=== PATIENT | female | born 1955 | race Caucasian/White ===

== ENCOUNTER 2016-08-26 23:53 | Inpatient (IN) | payer MEDICARE, OTHER ==
--- NOTE | ~2016-08-26 | ECH ---
Echocardiogram [address] [place]. [address] NAME: JAI PERES : 59 STATUS : DIS IN PAT#: [id number] AGE: 61 ADM/REG DATE : 08/27/16 MR#: [id number] REPORT SERV DATE: 08/31/16 DICTATED BY: DANIA HILL JR. DATE: 08/27/16 REPORT STATUS : Draft TRANSCRIBED BY: SAJI DATE: 08/27/16 REFERRING DOCTOR: Dr. Gonzalez, Dr. Miles, Dr. Addison. DATE OF ACQUISITION: 08/27/2016. INDICATIONS: Syncope. ROOM NUMBER: [facility] 226. TECH: Robyn Cruz is the RDCS. 2-D INTERPRETATION: M-mode and 2-dimensional echocardiography were performed. The left atrium was normal in size measuring 2.1 cm compared to an aortic root diameter of 3 cm. The left ventricle was normal in size measuring 3.9 cm in end-diastole and 2.6 cm in end- systole. Overall, there appeared to be normal left ventricular systolic function without obvious segmental wall motion abnormality with ejection fraction approximately 60%. The aortic valve was trileaflet. The mitral valve appeared to be structurally normal. The remaining cardiac valves appeared to be structurally normal. No obvious pericardial or pleural effusion could be seen. No intracardiac mass could be identified. DOPPLER/COLOR FLOW: Conventional and Doppler color flow imaging were performed. Mitral inflow patterns suggest grade 1 diastolic function with reduced left ventricular compliance, which could be normal for the patient's age. There was no significant mitral insufficiency. There was no significant tricuspid insufficiency. Peak gradient across the aortic valve measured 6 mmHg. Neither significant stenosis or insufficiency of the remaining cardiac valves could be visualized. CONCLUSION: NORMAL LEFT VENTRICULAR SYSTOLIC FUNCTION WITH DIASTOLIC FUNCTION REDUCED FOR AGE AND NO SIGNIFICANT VALVULAR DISEASE. DEFINITY CONTRAST IMAGING AGENT WAS UTILIZED. /SAJI Dania Hill Jr., M.D. / [id number] CC: Farooq Gonzalez Jr, MD Jimmy Davis, M.D.
--- NOTE | ~2016-08-26 | HP ---
History And Physical [facility] [address] [place]. [address] NAME: JAI PERES : 59 STATUS : ADM Zeyad PAT#: [id number] AGE: 61 ADM/REG DATE : 08/27/16 MR#: [id number] REPORT SERV DATE: 08/27/16 DICTATED BY: KENNETH CHAVEZ DATE: 08/27/16 REPORT STATUS : Draft TRANSCRIBED BY: MODSkyler DATE: 08/27/16 DATE OF ADMISSION: 08/26/2016 POINT OF ENTRY: [facility] Emergency Department. PRIMARY GAMING DEPARTMENT HEAD: Veronika Paige M.D. PRIMARY NEUROLOGIST: Chetan Stanford M.D. CHIEF COMPLAINT: Syncope. HISTORY OF PRESENT ILLNESS: Ms Peres is a 61-year-old female with history of chronic abdominal pain on chronic narcotics, seizure disorder, fibromyalgia, and non-insulin- dependent diabetes mellitus type 2 who presents to the emergency department today with reports of multiple episodes of syncope while at home. The patient states that today she had six separate episodes of unwitnessed syncope. She states that she was unable to estimate how long she was down for during each event. She did feel weak and dizzy all day today, but denied any presyncopal palpitations, chest pain, nausea, vomiting, diaphoresis. She states that she has been taking in normal amounts of food and water up until today, but has not taken in much today given her recurrent syncopal episodes as well as feeling weak and dizzy. The patient did experience some jaw pain, left arm pain as well as some chest tightness sometime during today in the setting of her syncopal episodes making her think that she was having a "heart attack." Initial evaluation in the emergency department for EKG as well as a set of cardiac enzymes are unremarkable. CT of the brain was negative. Labs are notable for some dehydration with elevated BUN and creatinine as well as orthostatic vital signs that were positive by symptoms, heart rate as well as systolic blood pressure drop. She was started on some IV fluids and admitted to hospice for further management. REVIEW OF SYSTEMS: Comprehensive review of systems otherwise negative unless listed in history of present illness. PREVIOUS MEDICAL HISTORY: 1. Chronic abdominal pain on chronic narcotics. 2. Chronic constipation. 3. History of esophagitis. 4. History of diverticulitis. 5. Seizure disorder. 6. Fibromyalgia. 7. Hypothyroidism, no longer on medications. 8. Cqx-qwrbvqb-sgfigugzg diabetes mellitus type 2. History And Physical [address] [place]. [address] NAME: JAI PERES : 59 STATUS : ADM Zeyad PAT#: [id number] AGE: 61 ADM/REG DATE : 08/27/16 MR#: [id number] REPORT SERV DATE: 08/27/16 DICTATED BY: KENNETH CHAVEZ DATE: 08/27/16 REPORT STATUS : Draft TRANSCRIBED BY: MODSkyler DATE: 08/27/16 9. Prior history of pancreatitis. 10.Bipolar disease. 11.Hyperlipidemia. 12.Prior history of CVA and TIA. 13.Prior history of coronary artery disease with myocardial infarction. SURGICAL HISTORY: 1. Cholecystectomy. 2. Appendectomy. 3. Abdominal hysterectomy. 4. Tonsillectomy. 5. Colectomy. 6. Ulnar nerve surgery. 7. Exploratory laparotomy. 8. Right total hip. 9. Partial colectomy. ALLERGIES: TO PENICILLIN, HYDROCODONE, METHADONE, IV CONTRAST, AND MORPHINE. HOME MEDICATIONS: 1. Klonopin 1 mg b.i.d. 2. Plavix 75 mg daily. 3. Farxiga 10 mg daily. 4. Cymbalta 60 mg daily. 5. Relpax 40 mg p.r.n. 6. Hydromorphone Extended Release 12 mg daily. 7. Lansoprazole 60 mg daily. 8. Keppra 1000 mg b.i.d. 9. Linzess 145 mcg daily p.r.n. 10.Roxicodone 5 mg q.6 hours p.r.n. 11.Trazodone 300 mg q.h.s. 12.Ambien 10 mg q.h.s. SOCIAL HISTORY: She does smoke about one pack per day. Denies any alcohol. Denies any illicits. FAMILY MEDICAL HISTORY: Mother at an early age of unknown causes. Father with history of coronary artery disease as well as a stroke. Siblings with cancer and dementia. LABS AND IMAGIN. White count is 8.9, hemoglobin is 15.4, hematocrit is 46.4, and platelet count is 278. INR is 1.0. 2. Sodium is 138, potassium 4.1, chloride 104, carbon dioxide 20, BUN 34, creatinine 1.16, glucose is 85, calcium is 9.6, magnesium is 2.1, total protein is 9.3, albumin is 4.2, bilirubin is 0.4, ALT is 22, AST is 18, and alkaline phosphatase is 75. 3. Lipase is 426. 4. Troponin less than 0.02. History And Physical [address] [address] NAME: JAI PERES : 59 STATUS : ADM Zeyad PAT#: [id number] AGE: 61 ADM/REG DATE : 08/27/16 MR#: [id number] REPORT SERV DATE: 08/27/16 DICTATED BY: KENNETH CHAVEZ DATE: 08/27/16 REPORT STATUS : Draft TRANSCRIBED BY: SAJI DATE: 08/27/16 5. EKG per my review shows sinus tachycardia with left anterior fascicular block with no evidence of any acute ischemia or infarction. 6. Chest x-ray per my review shows no acute cardiopulmonary abnormality. 7. CT scan of the brain shows age-related atrophy, but otherwise no acute cerebrovascular accident or bleed. 8. Orthostatic vital signs were positive by both heart rate, systolic blood pressure drop as well as symptoms. PHYSICAL EXAMINATION: VITAL SIGNS: Temperature is 97.7 degrees Fahrenheit, pulse is 93, respirations 18, saturating 95% on room air, and blood pressure 115/69. On recheck, blood pressure 104/59. GENERAL: The patient is awake and alert, in no acute distress. Resting comfortably in bed. She is a well-developed, well-nourished, elderly female. HEENT: Atraumatic and normocephalic. Dry mucous membranes. Pupils are equal, round, reactive to light and accommodation. Extraocular eye movements are intact. No scleral icterus. NECK: No jugular vein distention. No carotid bruits. CARDIAC: Regular rate and rhythm. No murmurs or gallops. Normal S1, S2. LUNGS: Clear to auscultation bilaterally. No wheezes, rhonchi, or crackles. ABDOMEN: Soft, mildly tender to palpation over all quadrants. No rebound, guarding, or rigidity. EXTREMITIES: Warm and perfused. No cyanosis, clubbing, or edema. SKIN: Warm and dry. PSYCH: Affect appropriate. NEURO: Alert and oriented x3. Cranial nerves 2 through 12 grossly intact. Speech is normal. Gait not assessed. ASSESSMENT AND PLAN: Ms Peres is a 61-year-old female, who presents with multiple episodes of syncope likely secondary to orthostatic hypotension secondary to dehydration. PROBLEM LIST: 1. Syncope. 2. Orthostatic hypotension. 3. Dehydration. 4. Chest pain. 5. Chronic abdominal pain on chronic narcotics. 6. Mild lipase elevation. PLAN: 1. Syncope. Given the patient's labs as well as positive orthostatic vital signs, this is all likely secondary to orthostatic hypotension and dehydration. We will continue aggressive IV fluid hydration and recheck orthostatic vital signs later in the morning. In the meantime, we will check an echocardiogram as well as carotid arterial Dopplers and trend out cardiac enzymes given the patient's report of some chest pain during the day today. 2. Dehydration. Provide IV fluids. Unclear reason as to why she is dehydrated as she denied any change in her oral intake except for today and is not on any diuretics. History And Physical [address] [address] NAME: JAI PERES : 59 STATUS : ADM Zeyad PAT#: [id number] AGE: 61 ADM/REG DATE : 08/27/16 MR#: [id number] REPORT SERV DATE: 08/27/16 DICTATED BY: KENNETH CHAVEZ DATE: 08/27/16 REPORT STATUS : Draft TRANSCRIBED BY: SAJI DATE: 08/27/16 3. Chest pain. The patient reports a history of coronary artery disease in the past, admittedly has not been noncompliant with her aspirin and Plavix. We will place her back on these medications. Continue to trend out cardiac enzymes. Check an echocardiogram. 4. Chronic abdominal pain. Continue the patient's home medications. 5. Mild lipase elevation. The patient has had pancreatitis in the past and has had multiple incidents of elevated lipase levels, this did not clinically correlate with episodes of acute pancreatitis. She denies any nausea or vomiting, and states her abdominal pain is more chronic in nature. 6. DVT prophylaxis. Lovenox subcu. CODE STATUS: The patient wished to be full code. BRIJESH/SAJI Kenneth Chavez MD / [id number] CC: Homero Phillip III, M.D. Larry Gibson, M.D.
--- NOTE | ~2016-08-26 | DS ---
Discharge Summary [facility] [address] [place]. [address] NAME: JAI PERES : 59 STATUS : DIS IN PAT#: [id number] AGE: 61 ADM/REG DATE : 08/27/16 MR#: [id number] REPORT SERV DATE: 08/29/16 DICTATED BY: JR. GONZALEZ WILLIAM JOHN DATE: 08/28/16 REPORT STATUS : Draft TRANSCRIBED BY: SAJI DATE: 08/28/16 ADMISSION DATE: 08/27/2016 DISCHARGE DATE: 08/28/2016 DISCHARGE DIAGNOSES: Include: 1. Orthostatic syncope. 2. Dehydration. 3. Chest pain. 4. Chronic abdominal pain. 5. Hyperlipasemia. OPERATIONS, PROCEDURES, AND TREATMENTS: Include: 1. CT of the brain done on 08/26/2016, which was unremarkable without evidence of intracranial pathology. 2. Chest x-ray done on 08/26/2016, which showed no acute cardiopulmonary process. 3. Carotid blood flow study done on 08/27/2016, which showed right carotid category 1, left carotid normal, antegrade bilateral flow in the vertebrals. 4. Echocardiogram is pending at this time. 5. Myocardial perfusion scan done on 08/28/2016, which showed no ischemia with post infusion ejection fraction of 60%. DISCHARGE MEDICATIONS: Include: 1. Plavix 75 mg orally daily. 2. Cymbalta 60 mg orally daily. 3. Keppra 1000 mg orally twice a day. 4. Trazodone 300 mg orally daily. 5. Ambien 10 mg at bedtime. 6. Klonopin 1 mg orally twice a day. 7. Linzess 145 mcg daily p.r.n. 8. Prevacid 30 mg orally daily. 9. Exalgo 12 mg every morning. 10.Oxycodone 5 mg orally every six hours as needed. 11.Relpax 40 mg as needed. 12.Farxiga 10 mg orally daily. HOSPITAL COURSE: The patient is a 61-year-old white female with chronic abdominal pain, on chronic narcotic medications; seizure disorder; fibromyalgia; and diabetes mellitus type 2 who presented to emergency room with chief complaint of syncope while at home. The patient said that she had six separate unwitnessed syncopal episodes. She was unable to account for how long she may have been down. She did experience some jaw pain, left arm pain, and chest tightness sometimes during the attacks and was afraid she may have been having a heart attack. Initial exam was unremarkable without focal neurologic deficit. She was orthostatic in the emergency room. The patient was admitted to the Clinical Decision Unit for orthostatic syncope. She was given IV fluid hydration, and on hospital day #2, had orthostatic vital signs with supine Discharge Summary [id number] [facility] [place]. [address] NAME: JAI PERES : 59 STATUS : DIS IN PAT#: [id number] AGE: 61 ADM/REG DATE : 08/27/16 MR#: [id number] REPORT SERV DATE: 08/29/16 DICTATED BY: JR. GONZALEZ WILLIAM JOHN DATE: 08/28/16 REPORT STATUS : Draft TRANSCRIBED BY: SAJI DATE: 08/28/16 blood pressure of 114/60 and heart rate 69, sitting blood pressure 121/68 and heart rate 71, standing blood pressure 114/66 and heart rate 76. She also underwent an echocardiogram, which is pending at this time. I discussed with the patient that it is pending and she was comfortable being discharged without this reading to be followed up with Dr. Mathis. Regarding chest pain, the patient continued to complain of episodic chest pain. She underwent a stress test, which showed no evidence of ischemia. The remainder of the patient's problems including chronic abdominal pain and hyperlipasemia were not addressed during this hospitalization. The patient will be discharged home today, 08/28/2016. She will follow up with Dr. Mathis at [facility] with the echocardiogram results. Her diet will be regular. Activity as tolerated. This discharge took 45 minutes for patient encounter, coordination of care, and documentation. WRobinF/SAJI Farooq Gonzalez Jr, MD / [id number] CC: Farooq Gonzalez Jr, MD Jimmy Davis, M.D.
[~2016-08-26 23:53] MED LIST: AMITIZA8 MCG PO; ASA5GR PO; ASAEC PO; ATV.5 PO; ATV1 PO; COLCH6 PO; CYMBALTA60 PO; DOLOPHINE10 MG PO; ENDOCET1 TAB PO; EXALGO8 MG PO; KEPPRA1000 MG PO; KEPPRA500 PO; KLONO1 PO; KLONO2 PO; LEVETIRACETA1000 MG OR; LEVOTHYROXIN50 MCG PO; LIPITOR20 PO; LYRICA50 PO; LYRICA75 PO; METHATAB10 PO; OXYCON10 PO; PERCOCET1 TA4 PO; PLAVIX PO; PRAVAC PO; PREV30 PO; SEROQUEL400 MG PO; SOMATAB PO; SYN.05 PO; TRAZODONE150 MG PO; TRAZODONE300 MG PO; TRILIPIX135 MG PO; ULTRAM50 PO; ZANAFLEX 4 MG TA4 MG PO; [UNRECOGNIZED DRUG - CODE] PO; [UNRECOGNIZED DRUG - OTHER]; [UNRECOGNIZED DRUG - REMARK]
[2016-08-27 00:36] LABS: BASOPHILS 0.3 %; BASOPHILS ABSOLUTE 0.03 10/3/uL (0.0-0.16); EOSINOPHILS 1.2 %; EOSINOPHILS ABSOLUTE 0.11 10/3/uL (0.0-0.53); ER CBC TAT 0 Hrs 09 Mins; IMMATURE GRANULOCYTES 0.3 %; IMMATURE GRANULOCYTES ABSOLUTE 0.03 10/3/uL (0.0-0.11); LYMPHOCYTES 30.3 %; LYMPHOCYTES ABSOLUTE 2.69 10/3/uL (0.67-4.30); MEAN CORPUS HGB CONC 33.8 g/dL (32.0-36.0); MEAN CORPUSCULAR HEMOGLOB 31.5 pg (26.0-34.0); MEAN CORPUSCULAR VOLUME 93.2 fL (80-100); MEAN PLATELET VOLUME 11.2 fL (9.2-13.0); MONOCYTES 6.8 %; NEUTROPHILS 61.1 %; NEUTROPHILS ABSOLUTE 5.41 10/3/uL (2.02-8.40); RBC DISTRIBUTION WIDTH 14.2 % (12.0-16.0); RED CELL COUNT 4.98 10/6/uL (4.0-5.6); WHITE BLOOD CELLS 8.9 10/3/uL (4.5-10.5)
[2016-08-27 00:37] LABS: HEMATOCRIT 46.4 % (36.0-48.0); HEMOGLOBIN 15.7 g/dL (12.0-16.0); MANUAL DIFF NO %; PLATELET COUNT 278 10/3/uL (150-400)
[2016-08-27 00:43] LABS: PARTIAL THROMBO TIME 27.4 SEC (22.5-37.2); PROTIME (NOT ORD) 13.5 SEC (12.0-14.5)
[2016-08-27 00:46] LABS: D-DIMER QUANTITATIVE 0.39 ug/mLFEU (< 0.50)
[2016-08-27 00:53] LABS: ALBUMIN 4.2 G/DL (3.5-5.0); ALKALINE PHOSPHATASE 75 U/L (45-117); CHEST PAIN PROFILE TAT 0 Hrs 26 Mins; CHLORIDE, SERUM 104 MMOL/L (96-112); DIRECT BILIRUBIN 0.1 MG/DL (0.0-0.4); GLUCOSE, SERUM 85 MG/DL (60-99); INDIRECT BILIRUBIN(NOT ORDER) 0.3 MG/DL (0.1-0.9); POTASSIUM, SERUM 4.1 MMOL/L (3.5-5.3); SGOT(AST) 18 U/L (5-40); SGPT(ALT) 22 U/L (5-65); SODIUM, SERUM 138 MMOL/L (135-148); TOTAL BILIRUBIN 0.4 MG/DL (0-1.2); TROPONIN I <0.02 NG/ML (<0.05)
[2016-08-27 01:12] LABS: BUN (BLOOD UREA NITROGEN) 34 MG/DL (6-23); CALCIUM, SERUM 9.6 MG/DL (8.5-10.4); CO2 (CARBON DIOXIDE) 20 MMOL/L (24-34); CREATININE 1.16 MG/DL (0.55-1.02); GFR AFRICAN AMERICAN 60 ML/MIN (>=60); GFR NON AFRICAN AMERICAN 51 ML/MIN (>=60); TOTAL PROTEIN 9.3 G/DL (6.0-8.5)
[2016-08-27] MEDS ORDERED: KLONO1 PO (01:54)
[2016-08-27] MEDS ORDERED: EXALGO12 MG PO (01:55)
[2016-08-27] MEDS ORDERED: RELPAX40 MG PO (01:55)
[2016-08-27] MEDS ORDERED: LINZESS 145 M145 MCG PO (01:55)
[2016-08-27] MEDS ORDERED: TRAZODONE300 MG PO (01:55)
[2016-08-27] MEDS ORDERED: OXYCOD PO (01:55)
[2016-08-27] MEDS ORDERED: CYMBALTA60 PO (01:55)
[2016-08-27] MEDS ORDERED: PREV30 PO (01:55)
[2016-08-27] MEDS ORDERED: KEPPRA1000 MG PO (01:56)
[2016-08-27] MEDS ORDERED: AMB10 PO (01:56)
[2016-08-27] MEDS ORDERED: PLAVIX PO (02:00)
[2016-08-27] MEDS ORDERED: FARXIGA10 PO (02:06)
[2016-08-27 09:26] LABS: FREE T4 0.63 NG/DL (0.76-1.46); TROPONIN I <0.02 NG/ML (<0.05)
[2016-08-27 09:27] LABS: CK-MB 0.9 NG/ML; CPK 54 U/L (0-200)
[2016-08-27 10:28] LABS: ASCORBIC ACID (UR NOT ORDER) NEG (NEG); BILIRUBIN, URINE NEGATIVE (NEG); KETONE, URINE NEGATIVE (NEG); LEUKOCYTE ESTERASE(NOT OR NEG (NEG); WBC (NOT ORDERED) (RFLEX) 1 (0-5)
[2016-08-27 18:33] LABS: BASOPHILS 0.8 %; BASOPHILS ABSOLUTE 0.04 10/3/uL (0.0-0.16); EOSINOPHILS 3.4 %; EOSINOPHILS ABSOLUTE 0.16 10/3/uL (0.0-0.53); LYMPHOCYTES 38.9 %; LYMPHOCYTES ABSOLUTE 1.85 10/3/uL (0.67-4.30); MEAN CORPUS HGB CONC 33.3 g/dL (32.0-36.0); MEAN CORPUSCULAR HEMOGLOB 30.9 pg (26.0-34.0); MEAN CORPUSCULAR VOLUME 92.6 fL (80-100); MEAN PLATELET VOLUME 10.7 fL (9.2-13.0); MONOCYTES 5.9 %; MONOCYTES ABSOLUTE 0.28 10/3/uL (0.21-1.20); NEUTROPHILS ABSOLUTE 2.42 10/3/uL (2.02-8.40); PLATELET COUNT 230 10/3/uL (150-400); RBC DISTRIBUTION WIDTH 13.9 % (12.0-16.0); RED CELL COUNT 4.05 10/6/uL (4.0-5.6)
[2016-08-27 18:35] LABS: HEMATOCRIT 37.5 % (36.0-48.0); HEMOGLOBIN 12.5 g/dL (12.0-16.0); MANUAL DIFF NO %; WHITE BLOOD CELLS 4.8 10/3/uL (4.5-10.5)
[2016-08-27 18:48] LABS: CHLORIDE, SERUM 106 MMOL/L (96-112); CPK 62 U/L (0-200); CREATININE 0.77 MG/DL (0.55-1.02); GFR AFRICAN AMERICAN 98 ML/MIN (>=60); GFR NON AFRICAN AMERICAN 85 ML/MIN (>=60); GLUCOSE, SERUM 91 MG/DL (60-99); POTASSIUM, SERUM 3.7 MMOL/L (3.5-5.3); SODIUM, SERUM 141 MMOL/L (135-148); TROPONIN I <0.02 NG/ML (<0.05)
[2016-08-27 18:50] LABS: BUN (BLOOD UREA NITROGEN) 19 MG/DL (6-23); CALCIUM, SERUM 8.4 MG/DL (8.5-10.4); CK-MB 1.1 NG/ML; CO2 (CARBON DIOXIDE) 25 MMOL/L (24-34)
[2016-08-28 04:48] LABS: BASOPHILS 0.5 %; BASOPHILS ABSOLUTE 0.02 10/3/uL (0.0-0.16); EOSINOPHILS 4.6 %; HEMATOCRIT 40.2 % (36.0-48.0); HEMOGLOBIN 12.9 g/dL (12.0-16.0); LYMPHOCYTES 52.7 %; LYMPHOCYTES ABSOLUTE 2.27 10/3/uL (0.67-4.30); MEAN CORPUS HGB CONC 32.1 g/dL (32.0-36.0); MEAN CORPUSCULAR HEMOGLOB 30.1 pg (26.0-34.0); MEAN CORPUSCULAR VOLUME 93.7 fL (80-100); MONOCYTES 7.4 %; MONOCYTES ABSOLUTE 0.32 10/3/uL (0.21-1.20); NEUTROPHILS 34.8 %; PLATELET COUNT 193 10/3/uL (150-400); RBC DISTRIBUTION WIDTH 13.9 % (12.0-16.0); RED CELL COUNT 4.29 10/6/uL (4.0-5.6); WHITE BLOOD CELLS 4.3 10/3/uL (4.5-10.5)
[2016-08-28 04:56] LABS: MANUAL DIFF NO %
[2016-08-28 04:59] LABS: BUN (BLOOD UREA NITROGEN) 16 MG/DL (6-23); CALCIUM, SERUM 8.5 MG/DL (8.5-10.4); CHLORIDE, SERUM 108 MMOL/L (96-112); CO2 (CARBON DIOXIDE) 26 MMOL/L (24-34); CREATININE 0.69 MG/DL (0.55-1.02); GFR AFRICAN AMERICAN 110 ML/MIN (>=60); GFR NON AFRICAN AMERICAN 95 ML/MIN (>=60); GLUCOSE, SERUM 82 MG/DL (60-99); POTASSIUM, SERUM 3.7 MMOL/L (3.5-5.3); SODIUM, SERUM 143 MMOL/L (135-148)
[2016-09-07] MEDS ORDERED: ASABAYER PO (14:31)
[2016-09-07] MEDS ORDERED: TRAZODONE300 MG PO (14:32)
[2016-09-07] MEDS ORDERED: SEROQUEL400 MG PO (14:32)
[2016-09-07] MEDS ORDERED: KEPPRA1000 MG PO (14:33)
[2016-09-07] MEDS ORDERED: CYMBALTA60 PO (14:33)
[2016-09-07] MEDS ORDERED: PREV30 PO (14:33)
[2016-09-07] MEDS ORDERED: PCET PO (14:34)
[2016-09-07] MEDS ORDERED: PLAVIX PO (14:35)
[2016-09-07] MEDS ORDERED: LYRICA75 PO (14:35)
[2016-09-07] MEDS ORDERED: KLONO1 PO (14:35)
[2016-09-07] MEDS ORDERED: PRAVAC PO (14:36)
[2016-09-07] MEDS ORDERED: FARXIGA10 PO (14:37)
[2016-09-07] MEDS ORDERED: EXALGO12 MG PO (14:37)
[2016-09-07] MEDS ORDERED: RELPAX40 MG PO (14:38)
[2016-09-07] MEDS ORDERED: TRILIPIX135 MG PO (14:38)
[2016-09-07] MEDS ORDERED: LINZESS 145 M145 MCG PO (14:39)
[2016-09-07] MEDS ORDERED: AMB10 PO (14:40)
== END 2016-08-28 17:22 | disposition home or self-care (01) | DRG 641 ==
LOC: ER 23:53 → CDU1 08-27 02:47 → CDU2 08-27 03:10
PROVIDERS: Internal Medicine; Specialist
DX: E86.0 Dehydration (principal); R55 Syncope and collapse; E03.9 Hypothyroidism, unspecified; Z79.891 Long term (current) use of opiate analgesic; G40.909 Epilepsy, unspecified, not intractable, without status epilepticus; M79.7 Fibromyalgia; E11.9 Type 2 diabetes mellitus without complications; E78.5 Hyperlipidemia, unspecified; Z86.73 Personal history of transient ischemic attack (TIA), and cerebral infarction without residual deficits; I25.10 Atherosclerotic heart disease of native coronary artery without angina pectoris; I25.2 Old myocardial infarction; Z90.49 Acquired absence of other specified parts of digestive tract; Z90.710 Acquired absence of both cervix and uterus; Z96.641 Presence of right artificial hip joint; Z79.02 Long term (current) use of antithrombotics/antiplatelets; F17.210 Nicotine dependence, cigarettes, uncomplicated; R10.9 Unspecified abdominal pain
CPT/HCPCS: 70450; 71010; 78452; 80048; 80076; 81001; 82550; 82553; 82962; 83690; 83735; 84439; 84443; 84484; 85025; 85379; 85610; 85730; 93005; 93017; 93880; 99285; A9270-GY; A9502; C8929; J0153; J0280; J1170; Q9957

== ENCOUNTER 2016-10-21 15:52 | Emergency (ER) | payer MEDICARE, OTHER ==
[~2016-10-21 15:52] MED LIST changes: +AMB10 PO; +ASABAYER PO; +EXALGO12 MG PO; +FARXIGA10 PO; +LINZESS 145 M145 MCG PO; +OXYCOD PO; +PCET PO; +RELPAX40 MG PO
[2016-10-21 16:53] LABS: BASOPHILS 0.2 %; BASOPHILS ABSOLUTE 0.03 10/3/uL (0.0-0.16); EOSINOPHILS 1.1 %; EOSINOPHILS ABSOLUTE 0.13 10/3/uL (0.0-0.53); ER CBC TAT 0 Hrs 05 Mins; HEMATOCRIT 44.8 % (36.0-48.0); HEMOGLOBIN 14.6 g/dL (12.0-16.0); IMMATURE GRANULOCYTES 0.4 %; IMMATURE GRANULOCYTES ABSOLUTE 0.05 10/3/uL (0.0-0.11); LYMPHOCYTES 9.6 %; LYMPHOCYTES ABSOLUTE 1.18 10/3/uL (0.67-4.30); MEAN CORPUS HGB CONC 32.6 g/dL (32.0-36.0); MEAN CORPUSCULAR HEMOGLOB 30.3 pg (26.0-34.0); MEAN CORPUSCULAR VOLUME 92.9 fL (80-100); MONOCYTES ABSOLUTE 0.62 10/3/uL (0.21-1.20); NEUTROPHILS 83.7 %; NEUTROPHILS ABSOLUTE 10.29 10/3/uL (2.02-8.40); PLATELET COUNT 264 10/3/uL (150-400); RBC DISTRIBUTION WIDTH 14.3 % (12.0-16.0); RED CELL COUNT 4.82 10/6/uL (4.0-5.6); WHITE BLOOD CELLS 12.3 10/3/uL (4.5-10.5)
[2016-10-21 16:54] LABS: MANUAL DIFF NO %
[2016-10-21 17:08] LABS: INTERNATIONAL NORMAL RATI 1.1 UNITS (-); PROTIME (NOT ORD) 14.1 SEC (12.0-14.5)
[2016-10-21 17:09] LABS: PARTIAL THROMBO TIME 89.8 SEC (22.5-37.2)
[2016-10-21 17:12] LABS: BUN (BLOOD UREA NITROGEN) 24 MG/DL (6-23); CALCIUM, SERUM 9.7 MG/DL (8.5-10.4); CHEST PAIN PROFILE TAT 0 Hrs 24 Mins; CHLORIDE, SERUM 105 MMOL/L (96-112); CO2 (CARBON DIOXIDE) 23 MMOL/L (24-34); CREATININE 1.04 MG/DL (0.55-1.02); GFR AFRICAN AMERICAN 68 ML/MIN (>=60); GFR NON AFRICAN AMERICAN 59 ML/MIN (>=60); GLUCOSE, SERUM 106 MG/DL (60-99); POTASSIUM, SERUM 4.2 MMOL/L (3.5-5.3); SODIUM, SERUM 137 MMOL/L (135-148); TROPONIN I <0.02 NG/ML (<0.05)
== END 2016-10-21 18:59 | disposition short-term general hospital (02) ==
LOC: ER 15:52
PROVIDERS: Nurse Practitioner
PROC: 2W3QX1Z Immobilization of Right Lower Leg using Splint (ICD-10-PCS; principal; 2016-10-21)
DX: S82.301A Unspecified fracture of lower end of right tibia, initial encounter for closed fracture (principal); S82.831A Other fracture of upper and lower end of right fibula, initial encounter for closed fracture; S06.6X9A Traumatic subarachnoid hemorrhage with loss of consciousness of unspecified duration, initial encounter; I25.2 Old myocardial infarction; I50.9 Heart failure, unspecified; E11.9 Type 2 diabetes mellitus without complications; F17.200 Nicotine dependence, unspecified, uncomplicated; Z88.0 Allergy status to penicillin; Z86.73 Personal history of transient ischemic attack (TIA), and cerebral infarction without residual deficits; Z88.5 Allergy status to narcotic agent; Z91.041 Radiographic dye allergy status; Z79.82 Long term (current) use of aspirin; Z79.899 Other long term (current) drug therapy; W19.XXXA Unspecified fall, initial encounter
CPT/HCPCS: 70450; 71010; 72125; 73590-RT; 80048; 83735; 84484; 85025; 85610; 85730; 96374; 99291; J1170; J2405